=== PATIENT | female | born 1950 | race Caucasian/White ===

== ENCOUNTER 2019-07-10 05:43 | Day surgery (SDC) | payer MEDICARE, OTHER ==
[~2019-07-10] VITALS: Ht 162.6 cm; Wt 81.5 kg
[~2019-07-10 05:43] MED LIST: NITR100C56; SERT100T; regular insulin
[2019-07-10] MEDS ORDERED: LACTATED RINGERS 1,000 ML IV SCH (07:15)
[2019-07-10 07:19] VITALS: BP 131/93
[2019-07-10] MEDS ORDERED: TOLT4CAP PO (07:19)
[2019-07-10] MEDS ORDERED: ATOR10TA9 PO (07:19)
[2019-07-10] MEDS ORDERED: LIPA1CAP4 PO (07:19)
[2019-07-10] MEDS ORDERED: OMEP40CA42 PO (07:19)
[2019-07-10] MEDS ORDERED: NITR100C56 PO (07:19)
[2019-07-10] MEDS ORDERED: PROPOFOL 50 ML ONE (07:29)
[2019-07-10] MEDS ORDERED: ACETAMINOPHEN 325 MG TABLET PO PRN (08:30)
[2019-07-10] MEDS ORDERED: ONDANSETRON 2MG/ML, 2ML IV PRN (08:30)
[2019-07-10] MEDS ORDERED: OXYcodone 5 MG/5 ML ORAL.SOL UDC PO PRN (08:30)
[2019-07-10] MEDS ORDERED: FENTANYL PF 100 MCG/2ML IV PRN (08:30)
== END 2019-07-10 09:45 | disposition home or self-care (01) ==
LOC: OUT 05:43
PROVIDERS: ATTEND Internal Medicine Geriatric Medicine
DX: K86.1 Other chronic pancreatitis (principal); K57.10 Diverticulosis of small intestine without perforation or abscess without bleeding; K86.89 Other specified diseases of pancreas; K21.9 Gastro-esophageal reflux disease without esophagitis; E78.5 Hyperlipidemia, unspecified; F41.9 Anxiety disorder, unspecified; E66.9 Obesity, unspecified; Z68.32 Body mass index [BMI] 32.0-32.9, adult; Z79.899 Other long term (current) drug therapy; Z88.8 Allergy status to other drugs, medicaments and biological substances; Z90.49 Acquired absence of other specified parts of digestive tract; Z98.890 Other specified postprocedural states; Z80.8 Family history of malignant neoplasm of other organs or systems
CPT/HCPCS: 43259; 93005; J2704